=== PATIENT | female | born 1995 | race Caucasian/White ===

== ENCOUNTER 2018-04-07 19:21 | Emergency (ER) | payer OTHER ==
[~2018-04-07] VITALS: Ht 160 cm; Wt 85.3 kg
[2018-04-07 19:36] VITALS: BP 140/78
--- NOTE | 2018-04-07 19:40 | NUR ---
TO BED # 7 AMBULATORY, REPORT GIVEN TO KEELEY MCFARLANE.
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
[2018-04-07] MEDS ORDERED: BACITRACIN OINT 500 UNITS/GM PKT TP ONE (19:58)
[2018-04-07] MEDS ORDERED: IBUPROFEN 600 MG TAB PO ONE (20:00)
[2018-04-07] MEDS ORDERED: IBUPROFEN 600 MG TAB ONE (20:02)
[2018-04-07 20:29] VITALS: BP 137/81
--- NOTE | 2018-04-07 20:29 | NUR ---
Patient discharged with v/s stable. Written and verbal after care instructions given and explained. Patient alert, oriented and verbalized understanding of instructions. Ambulatory with steady gait. All questions addressed prior to discharge. ID band removed. Patient advised to follow up with PMD. Rx of NAPROSYN 500MG given. Patient educated on indication of medication including possible reaction and side effects. Opportunity to ask questions provided and answered.
== END 2018-04-07 20:11 | disposition home or self-care (01) ==
LOC: MED 19:21
DX: S61.210A Laceration without foreign body of right index finger without damage to nail, initial encounter (principal); W45.8XXA Other foreign body or object entering through skin, initial encounter; Y93.89 Activity, other specified; Y99.8 Other external cause status; Y92.89 Other specified places as the place of occurrence of the external cause
CPT/HCPCS: 99283